=== PATIENT | male | born 1990 | race Caucasian/White ===

== ENCOUNTER 2021-02-03 01:25 | Emergency (ER) | payer OTHER ==
[~2021-02-03] VITALS: Ht 170.2 cm; Wt 80.0 kg
[2021-02-03 01:37] VITALS: BP 156/115
[2021-02-03] MEDS ORDERED: TETANUS, DIPHTHERIA, PERTUSSIS VAC/PF 0.5ML (>7YR OLD) IM ONE (01:45)
[2021-02-03] MEDS ORDERED: KETOROLAC 60MG/2ML VIAL IM ONE (01:45)
== END 2021-02-03 02:15 ==
LOC: ER 01:49
DX: F19.10 Other psychoactive substance abuse, uncomplicated (principal); S06.0X9A Concussion with loss of consciousness of unspecified duration, initial encounter; S00.01XA Abrasion of scalp, initial encounter; I10 Essential (primary) hypertension; Y35.93XA Legal intervention, means unspecified, suspect injured, initial encounter; Y93.89 Activity, other specified; Y92.9 Unspecified place or not applicable
CPT/HCPCS: 90471; 90715; 96372; 99284; J1885